=== PATIENT | female | born 1960 | race Native Hawaiian/Other Pacific Islander ===

== ENCOUNTER 2022-11-06 07:05 | Emergency (ER) | payer OTHER, SELFPAY ==
[2022-11-06 07:10] VITALS: BP 140/62; PULSE 68; RESP 16; TEMP 36.8; O2SAT 99; BMI 33.3
--- NOTE | 2022-11-06 07:13 | ED_ITS ---
HPI - General Adult General Chief complaint: Dizziness Stated complaint: fainted Time Seen by Provider: 11/06/22 07:06 Source: patient Mode of arrival: Ambulatory Limitations: no limitations History of Present Illness HPI narrative: In his a 62-year-old female who states she has a history of fainting. She states that she is not eaten since yesterday morning. She was upstairs visiting her sister who was a patient here at the hospital. She was holding her sister's hand and got lightheaded. She was able to make it over to the chair. She was able to sit down. She did not lose consciousness. Was not having chest pain or palpitations at the time. At the time of my evaluation she states she feels completely normal. Still have her blood pressure checked by the nursing staff upstairs and was told that her systolic blood pressure was in the 80s. Was also told that she is normal blood sugar. Related Data Allergies Allergy/AdvReac Type Severity Reaction Status Date / Time Sulfa (Sulfonamide Allergy Verified 11/06/22 07:43 Antibiotics) sulfamethoxazole Allergy Verified 11/06/22 07:43 [From Bactrim] trimethoprim [From Bactrim] Allergy Verified 11/06/22 07:43 Review of Systems Constitutional Constitutional: Reports system reviewed and no additional complaints, except as documented Cardiovascular Cardiovascular: Reports system reviewed and no additional complaints, except as documented Respiratory Respiratory: Reports system reviewed and no additional complaints, except as documented Gastrointestinal Gastrointestinal: Reports system reviewed and no additional complaints, except as documented Genitourinary Genitourinary: Reports system reviewed and no additional complaints, except as documented Integumentary/Breasts Skin/Breast: Reports system reviewed and no additional complaints, except as documented Neurologic Neurologic: Reports system reviewed and no additional complaints, except as documented Hematologic/Lymphatic On Anticoagulants: No Exam Initial Vital Signs Initial Vital Signs: Vital Signs Temperature 98.2 F 11/06/22 07:10 Pulse Rate 68 11/06/22 07:10 Respiratory Rate 16 11/06/22 07:10 Blood Pressure 140/62 11/06/22 07:10 Pulse Oximetry 99 11/06/22 07:10 Oxygen Delivery Method Room Air 11/06/22 07:10 HENMT Head: normal to inspection and normocephalic Resp Effort & Inspection: normal respiratory effort Auscultation: clear to auscultation bilaterally Cardio Rate: regular rate Rhythm: regular rhythm GI Inspection: normal to inspection Skin General: no rashes or lesions noted Neuro General: patient alert, patient awake, patient oriented x3 and moves all extremities Extrem General: normal to inspection and capillary refill normal Course Orders Ordered: ED Orders 11/06/22 07:10 EKG-12 Lead Stat Vital Signs Vital signs: Vital Signs - 8 hr 11/06/22 07:10 11/06/22 07:51 Temperature 98.2 F Pulse Rate 68 Pulse Rate [Orthostatic Lying] 61 Pulse Rate [Orthostatic Sitting] 63 Pulse Rate [Orthostatic Standing] 65 Respiratory Rate 16 Blood Pressure 140/62 Blood Pressure [Orthostatic Lying] 136/72 Blood Pressure [Orthostatic Sitting] 162/69 H Blood Pressure [Orthostatic Standing] 138/66 Pulse Oximetry 99 Oxygen Delivery Method Room Air Medical Decision Making ECG Data Attestation: I personally reviewed and interpreted this ECG as follows: Interpretation: Sinus rhythm Ventricular rate is 61 Normal axis Normal QRS Normal QTC No ST T wave changes MDM Narrative Medical decision making narrative: Here in the emergency department patient states that she feels completely back to normal. She thinks that she passed out because of lack of sleep, the fact that her sisters very sick, and not eating anything in 24 hours. She ambulated around the emergency department. Her EKG is unremarkable. I have low suspicion for CVA/TIA/stroke. Will discharge patient home. She was given return precautions. She expressed understanding and agreement. Discharge Plan Departure Patient Disposition: Home Clinical Impression: Fainting Instructions: DI for Syncope in Adults (Fainting) Activity Restrictions/Additional Instructions: Recommend that you continue to take all of your medications as directed. Contact your primary provider for a follow-up. [id number]. Referrals: Miscellaneous,Doctor [Primary Care Provider] - Stand Alone Forms: Patient Portal/API
[2022-11-06 07:51] VITALS: BP 136/72; BP 138/66; BP 162/69; PULSE 61; PULSE 63; PULSE 65
== END 2022-11-06 08:06 | disposition home or self-care (01) ==
PROVIDERS: Emergency Provider Emergency Medicine
DX: R55 Syncope and collapse (principal)
CPT/HCPCS: 93005; 93010; 99281; 99282